=== PATIENT | female | born 1995 | race American Indian/Alaskan Native ===

== ENCOUNTER 2018-08-02 16:10 | Emergency (ER) | payer SELFPAY ==
[2018-08-02 16:57] VITALS: RESP 20
[2018-08-02] MEDS ORDERED: Sodium Chloride 0.9% 1,000 ML IV ONE (18:26)
--- NOTE | 2018-08-02 18:40 | C.PDOC ---
History Of Present Illness 22 y/o female presents to the ED for evaluation of abdominal pain for 1 week. Patient reports LMP was 06/19. She also reports having 3 weeks of nausea. 1 week ago patient developed sharp, intermittent, periumbilical pain. No vomiting, fever, or chills. Patient reports she also had diarrhea last week. No vaginal bleeding. pt has normal appetite.Today patient felt as if she was going to pass out, prompting this ED visit. Time Seen by Provider: 08/02/18 18:14 Chief Complaint (Nursing): Abdominal Pain History Per: Patient History/Exam Limitations: no limitations Onset/Duration Of Symptoms: Days (x7) Current Symptoms Are (Timing): Still Present Location Of Pain/Discomfort: Periumbilical Associated Symptoms: Nausea, Diarrhea Abnormal Vaginal Bleeding: No Last Menstral Period: 06/19/18 Past Medical History Reviewed: Historical Data, Nursing Documentation, Vital Signs Vital Signs: Last Vital Signs Temp 98.3 F 08/02/18 16:55 Pulse 73 08/02/18 16:55 Resp 20 08/02/18 16:55 BP 114/65 08/02/18 16:55 Pulse Ox 99 08/02/18 16:55 - Medical History PMH: No Chronic Diseases Surgical History: Tonsillectomy Family History: States: No Known Family Hx - Social History Hx Tobacco Use: Yes Hx Alcohol Use: Yes Hx Substance Use: No - Immunization History Hx Tetanus Toxoid Vaccination: No Hx Influenza Vaccination: No Hx Pneumococcal Vaccination: No Review Of Systems Constitutional: Negative for: Fever, Chills Cardiovascular: Negative for: Chest Pain Respiratory: Negative for: Shortness of Breath Gastrointestinal: Positive for: Nausea, Abdominal Pain, Diarrhea. Negative for: Vomiting Genitourinary: Negative for: Dysuria, Frequency, Hematuria, Vaginal Discharge, Vaginal Bleeding Neurological: Positive for: Other ([place] near-syncopal). Negative for: Weakness, Dizziness Physical Exam - Physical Exam Appears: Non-toxic, No Acute Distress Skin: Warm, Dry Head: Normacephalic Eye(s): bilateral: PERRL, EOMI Oral Mucosa: Dry Neck: Normal ROM, Supple Cardiovascular: Rhythm Regular Respiratory: No Rales, No Rhonchi, No Wheezing, Other (Lungs CTA bilaterally) Gastrointestinal/Abdominal: Bowel Sounds, Soft, Tenderness (mild suprapubic tenderness), No Guarding, No Rebound Extremity: Normal ROM, No Calf Tenderness, No Swelling Neurological/Psych: Oriented x3, Normal Cognition ED Course And Treatment - Laboratory Results Result Diagrams: 08/02/18 19:03 08/02/18 19:03 Urine POC: Negative O2 Sat by Pulse Oximetry: 99 (RA) Pulse Ox Interpretation: Normal Medical Decision Making Medical Decision Making: Plan: Blood work and urine ordered and reviewed. Patient given 1 L IV fluids and 10 mg IV Reglan. Labs reviewed, UA shows +nitrate and bacteria. 2130 pt given dose of rocephin in ed, will d/c with macrobid and pmd f/u pt feeling much better. no abdominal pain, no longer lightheaded. appears well , abdomen soft, nd, nt on re-exam. Disposition Counseled Patient/Family Regarding: Studies Performed, Diagnosis, Need For Followup, Rx Given - Disposition Referrals: at [facility] [Outside] Disposition: HOME/ ROUTINE Disposition Time: 21:38 Condition: IMPROVED Additional Instructions: Please drink increased fluids. Take antibiotics as prescribed. Follow up in medical clinic in a few days; call for an appointment. Return to ER for any worse symptoms. Prescriptions: Nitrofurantoin Macrocrystals [Macrobid] 100 mg PO BID #14 cap Instructions: Urinary Tract Infection, Adult (DC) Forms: [facility] (Turkish), General Discharge Instructions - Clinical Impression Clinical Impression: UTI (urinary tract infection) - PA / COUNTY [employer]ON[employer] / Resident Statement MD/DO has reviewed & agrees with the documentation as recorded. - Scribe Statement The provider has reviewed the documentation as recorded by the Gina Yin All medical record entries made by the [place] were at my direction and personally dictated by me. I have reviewed the chart and agree that the record accurately reflects my personal performance of the history, physical exam, medical decision making, and the department course for this patient. I have also personally directed, reviewed, and agree with the discharge instructions and disposition.
[2018-08-02] MEDS ORDERED: Sodium Chloride 0.9% 1,000 ML ONE (19:05)
[2018-08-02 19:12] LABS: EOS % 0.3 % (0.0-4.0); LYMPH # 1.9 K/uL (1.0-4.3); LYMPH % 42.9 % (20.0-40.0); MEAN CELL VOLUME 83.8 fL (81.0-99.0); MEAN CORPUSCULAR HEMOGLOBIN 27.5 pg (27.0-31.0); MEAN CORPUSCULAR HGB CONC 32.9 g/dL (33.0-37.0); MEAN PLATELET VOLUME 10.2 fL (7.2-11.7); MONO # 0.6 K/uL (0.0-0.8); MONO % 14.6 % (0.0-10.0); NEUT # 1.8 K/uL (1.8-7.0); NEUT % 41.2 % (50.0-75.0); NRBC % 0.1 % (0.0-2.0); RBC 4.35 Mil/uL (3.80-5.20); RED CELL DISTRIBUTION WIDTH 13.9 % (11.5-14.5); WHITE BLOOD COUNT 4.4 K/uL (4.8-10.8)
[2018-08-02 19:25] LABS: ALB/GLOB RATIO 1.3 (1.0-2.1); ALBUMIN 4.7 g/dL (3.5-5.0); ALT/SGPT 21 U/L (9-52); AST/SGOT 25 U/L (14-36); BLOOD UREA NITROGEN 7 mg/dL (7-17); CALCIUM 9.3 mg/dl (8.6-10.4); GFR NON-AFRICAN AMERICAN > 60; LIPASE 39 U/L (23-300)
[2018-08-02 20:00] LABS: HCG,QUALITATIVE URINE NEGATIVE (NEGATIVE)
[2018-08-02 20:02] LABS: SQUAMOUS EPITHIAL 2 /hpf (0-5); URINE BACTERIA MANY (<OCC); URINE BILIRUBIN NEGATIVE (NEGATIVE); URINE BLOOD 1+ (NEGATIVE); URINE CLARITY Hazy (Clear); URINE GLUCOSE (UA) NORMAL (Normal); URINE LEUKOCYTE ESTERASE NEG Leu/uL (Negative); URINE PROTEIN NEGATIVE (NEGATIVE)
[2018-08-02 20:04] LABS: URINE COLOR YELLOW (YELLOW)
[2018-08-02] MEDS ORDERED: cefTRIAXone IV 1 gm in Dextros 50 ML IVPB STA (20:23)
[2018-08-02] MEDS ORDERED: cefTRIAXone 1 gm 1 GM/100 ML BAG IVPB ONE (20:38)
[2018-08-02 20:53] VITALS: BP 111/66; PULSE 82; TEMP 98.5
[2018-08-02 21:34] VITALS: O2SAT 99
== END 2018-08-02 21:46 | disposition home or self-care (01) ==
LOC: C.ER 16:10
DX: N39.0 Urinary tract infection, site not specified (principal)
CPT/HCPCS: 80053; 81001; 83690; 84702; 84703; 85025; 96361; 96365; 96375; 99285; J0696; J2765; J7030